=== PATIENT | male | born 1985 | race Caucasian/White ===

== ENCOUNTER → 2017-01-25 | Day surgery (SDC) | payer OTHER ==
[~2017-01-25] MED LIST: BUPIVACAINE/EPINEPHRINE 0.25% 50 ML VIAL ONE; KETOROLAC TROMETHAMINE 30 MG/ML (IVP) VIAL IV PUSH ONE; LACTATED RINGER'S 1000 ML INJ 1,000 ML ONE; MIDAZOLAM HCL 2 MG/2 ML VIAL ONE; NEOMYCIN/POLYMYXIN/BACITRACIN OINT 15 GM TUBE ONE; ONDANSETRON HCL 4 MG/2 ML VIAL IV PUSH ONE; PROPOFOL 200 MG/20 ML AMP IV ONE; ceFAZolin 2 GM PREMIX 50 ML ONE
--- NOTE | 2017-01-25 10:55 | TN ---
cc: PATRICK DWYER M.D. DATE OF SURGERY: 01/25/2017 PREOPERATIVE DIAGNOSIS Symptomatic pilonidal cyst. POSTOPERATIVE DIAGNOSIS Symptomatic pilonidal cyst. PROCEDURE PERFORMED Wide local excision of pilonidal cyst. SURGEON Patrick Dwyer MD ANESTHESIA General endotracheal, prone. COMPLICATIONS None. INDICATION FOR PROCEDURE Mr. Anand is a pleasant 31-year-old gentleman who had a problem with a pilonidal cyst. He experienced multiple episodes of swelling and drainage. He was seen and evaluated in the office. He was offered wide local excision. Risks and benefits of wide local excision was discussed with him and he was agreeable. DETAILS OF PROCEDURE The patient was identified, brought to the operating room and placed supine on his stretcher and intubated. Once he was successfully intubated he was placed prone on the operating room table with appropriate padding for hips, knees, shoulders and ankles. The buttocks was then shaved and then taped apart. The buttock and superior gluteal and anal area were then prepped and draped in standard surgical fashion. 0.25% Marcaine was injected in the skin and subcutaneous tissue around the cyst. An elliptical skin incision was used with generous margins in all directions to excise the pilonidal sinus and cyst. Care was taken to stay out of the pilonidal cyst cavity. Dissection proceeded all the way down to the sacral fascia. The specimen was then excised. Wound was then copiously irrigated with 1 liter of warm saline solution. Bleeding points were controlled with electrocautery Bovie. Wound was then closed in multiple layers, first using a 2-0 Vicryl for the deep layer, a 3-0 Vicryl for the superficial layer and a 4-0 Vicryl for the skin. The skin closure was then augmented with 4-0 Nylon sutures. Antibiotic ointment and sterile dressing was applied. The patient was then returned to the supine position, awakened successfully, extubated and brought to recovery in stable condition. MD PATRICK Cho/NANCYL /10:37 AM /10:41 AM
== END | disposition home or self-care (01) ==
LOC: ESDC 08:24
PROVIDERS: ATTEND Surgery Trauma Surgery
DX: L05.91 Pilonidal cyst without abscess (principal)
CPT/HCPCS: 00300; 11771; 88304; J0690; J1885; J2250; J2405; J3010; J7120